=== PATIENT | female | born 1965 | race Caucasian/White ===

== ENCOUNTER 2016-10-05 18:23 | Emergency (ER) | payer OTHER ==
--- NOTE | 2016-10-05 18:34 | EDPHY ---
H & P Stated Complaint: Dizziness and shaking x 1 hour HPI/ROS: HPI CHIEF COMPLAINT: Lightheadedness, feeling light going to pass out, anxiety HISTORY OF PRESENT ILLNESS: This patient very pleasant 51-year-old female significant past medical history for IBS, anxiety, thyroid disease, was having an MRI outpatient of her left knee today approximately 15 minute tender MRI she started feel lightheaded, anxious, tingling in her in her hands and arms. She states that she did have an MRI stopped. The tingling in her arms and has continued, she feels anxious and shortness of breath. Lightheaded. Does have should pass out. She did take a (1/3) of Xanax and decided to drive here to the emergency room. Past Medical History: Anxiety, IBS, thyroid disease Past Surgical History: recent surgery Social History: Denies daily use of drugs alcohol tobacco products Family History: Noncontributory ROS REVIEW OF SYSTEMS: A comprehensive 10 point review of systems is otherwise negative aside from elements mentioned in the history of present illness. Exam Constitutional anxious, triage nursing summary reviewed, vital signs reviewed , awake/alert. Eyes normal conjunctivae and sclera, EOMI, PERRLA. HENT normal inspection, atraumatic, moist mucus membranes, no epistaxis, neck supple/ no meningismus, no raccoon eyes. Respiratory clear to auscultation bilaterally, normal breath sounds, no respiratory distress, no wheezing. Cardiovascular rate normal, regular rhythm, no murmur, no edema, distal pulses normal. Gastrointestinal soft, non-tender, no rebound, no guarding, normal bowel sounds, no distension, no pulsatile mass. Genitourinary no CVA tenderness. Musculoskeletal no midline vertebral tenderness, full range of motion, no calf swelling, no tenderness of extremities, no meningismus, good pulses, neurovascularly intact. Skin pink, warm, & dry, no rash, skin atraumatic. Neurologic awake, alert and oriented x 3, AAOx3, moves all 4 extremities equally, motor intact, sensory intact, CN II-XII intact, normal cerebellar, normal vision, normal speech. Psychiatric normal mood/affect. Heme/Lymph/Immune no lymphadenopathy. Differential Diagnosis: Includes but is not limited to in a particular order acute anxiety, dehydration, electrolyte disturbance, cardiac arrhythmia, acute coronary syndrome which I doubt. Medical Decision Making: plan for patient blood work, IV establishment, EKG, troponin. IV Ativan for anxiety, IV fluids. Close observation re-evaluation. Re-evaluation: EKG time of EKG 1849, sinus rhythm rate of 96, no acute ischemic changes specifically no ST elevation, ST depression T-wave abnormalities. Unremarkable EKG. 2102: Re-examination at this time patient is resting comfortably she feels much better after IV Ativan. Fluids. 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 No hypertension. No fever. Electrolytes and blood work are appropriate. EKG nonischemic, chest x-ray reviewed. Feels much better after IV Ativan. Most likely presentation of anxiety after MRI. Recommend she takes her Xanax tonight relaxes, rest, stay well-hydrated strict return precautions have been given to the patient understands return emergency room if she develops any chest pain shortness of breath nausea vomiting generalized weakness. She is agreeable with this plan. Source: Patient - Personal History LMP (Females 10-55): Hysterectomy Current Tetanus Diphtheria and Acellular Pertussis (TDAP): Yes Tetanus Vaccine Date: WITHIN 10 YRS - Medical/Surgical History Other PMH: IBS, HYPOTHYROIDISM, HYST, HERNIA REPAIR, TUMMY TUCK - Social History Smoking Status: Never smoked Constitutional: Initial Vital Signs Temperature (C) 37.1 C 10/05/16 18:25 Heart Rate 93 10/05/16 18:25 Respiratory Rate 14 10/05/16 18:25 Blood Pressure 140/86 H 10/05/16 18:25 O2 Sat (%) 100 10/05/16 18:25 O2 Delivery Mode Room Air Allergies/Adverse Reactions: meperidine HCl [From Demerol] Allergy (Verified 08/29/15 20:50) Hives Home Medications: Medication Instructions Recorded Levothyroxine Sodium [Synthroid] 75 mcg PO 05/11/12 Amitiza 08/29/15 Docusate Sodium [Colace 100 MG (*)] 100 mg PO BID #20 cap 08/29/15 Nitrofurantoin Macrobid [Macrobid 100 mg PO BID #10 cap 08/29/15 100 mg (RX)] Medical Decision Making - Diagnostics Imaging: Imaging Impressions Chest X-Ray 10/05/16 18:42 Impression: Normal except for minimal airways disease. - Data Points Laboratory Results: Laboratory Results 10/05/16 18:45 10/05/16 18:45 10/05/16 10/05/16 10/05/16 18:45 18:45 18:45 WBC 10.21 10^3/uL H 10^3/uL (3.80-9.50) RBC 4.55 10^6/uL 10^6/uL (4.18-5.33) Hgb 13.7 g/dL g/dL (12.6-16.3) Hct 40.7 % % (38.0-47.0) MCV 89.5 fL fL (81.5-99.8) MCH 30.1 pg pg (27.9-34.1) MCHC 33.7 g/dL g/dL (32.4-36.7) RDW 12.4 % % (11.5-15.2) Plt Count 298 10^3/uL 10^3/uL (150-400) MPV 10.9 fL fL (8.7-11.7) Neut % (Auto) 58.1 % % (39.3-74.2) Lymph % (Auto) 28.0 % % (15.0-45.0) [place] % (Auto) 10.2 % % (4.5-13.0) Eos % (Auto) 2.2 % % (0.6-7.6) Baso % (Auto) 0.7 % % (0.3-1.7) Nucleat RBC Rel Count 0.0 % % (0.0-0.2) Absolute Neuts (auto) 5.94 10^3/uL 10^3/uL (1.70-6.50) Absolute Lymphs (auto) 2.86 10^3/uL 10^3/uL (1.00-3.00) Absolute Monos (auto) 1.04 10^3/uL H 10^3/uL (0.30-0.80) Absolute Eos (auto) 0.22 10^3/uL 10^3/uL (0.03-0.40) Absolute Basos (auto) 0.07 10^3/uL 10^3/uL (0.02-0.10) Absolute Nucleated RBC 0.00 10^3/uL 10^3/uL (0-0.01) Immature Gran % 0.8 % % (0.0-1.1) Immature Gran # 0.08 10^3/uL 10^3/uL (0.00-0.10) PT 12.5 SEC SEC (12.0-15.0) INR 0.94 (0.83-1.16) APTT 25.8 SEC SEC (23.0-38.0) D-Dimer 0.39 ug/mLFEU ug/mLFEU (0.00-0.50) Sodium 139 mEq/L mEq/L (134-144) Potassium 3.4 mEq/L L mEq/L (3.5-5.2) Chloride 103 mEq/L mEq/L (97-110) Carbon Dioxide 24 mEq/l mEq/l (22-31) Anion Gap 12 mEq/L mEq/L (8-16) BUN 14 mg/dL mg/dL (7-23) Creatinine 0.7 mg/dL mg/dL (0.6-1.0) Estimated GFR > 60 Glucose 135 mg/dL H mg/dL (70-100) Calcium 9.8 mg/dL mg/dL (8.5-10.4) Magnesium 1.8 mg/dL mg/dL (1.6-2.3) Total Bilirubin 0.6 mg/dL mg/dL (0.1-1.4) Conjugated Bilirubin 0.3 mg/dL mg/dL (0.0-0.5) Unconjugated Bilirubin 0.3 mg/dL mg/dL (0.0-1.1) AST 72 IU/L H IU/L (14-46) ALT 119 IU/L H IU/L (9-52) Alkaline Phosphatase 77 IU/L IU/L (38-126) Creatine Kinase 38 IU/L IU/L (0-156) CK-MB (CK-2) Fraction 0.29 ng/mL ng/mL (0-3.19) Troponin I < 0.012 ng/mL ng/mL (0-0.034) NT-Pro-B Natriuret Pep < 11 pg/mL pg/mL (0-125) Total Protein 7.5 g/dL g/dL (6.3-8.2) Albumin 4.5 g/dL g/dL (3.5-5.0) Lipase 94.0 IU/L IU/L (23-300) TSH 0.524 uIU/mL uIU/mL (0.465-4.680) Medications Given: Discontinued Medications Sodium Chloride (Ns) 1,000 mls @ 0 mls/hr IV ONCE ONE PRN Reason: Wide Open Stop: 10/05/16 18:42 Last Admin: 10/05/16 18:55 Dose: 1,000 mls Lorazepam (Ativan Injection) 1 mg IVP EDNOW ONE Stop: 10/05/16 18:42 Last Admin: 10/05/16 18:55 Dose: 1 mg Departure - Departure Disposition: Home, Routine, Self-Care Clinical Impression: Lightheaded Condition: Good Instructions: Lightheadedness (ED), Near Syncope (ED) Additional Instructions: 1. Drink lots of fluids stay well-hydrated 2. return emergency room if you have any worsening symptoms includes chest pain , shortness of breath, passing out vomiting or fever. Referrals: [facility] [Other] - As per Instructions
[2016-10-05] MEDS ORDERED: LORazepam 2 MG/ML INJ IVP ONE (18:41)
[2016-10-05] MEDS ORDERED: NS 1,000 ML IV ONE (18:41)
[2016-10-05] MEDS ORDERED: ONDANSETRON 4 MG/2 ML VIAL ONE (18:41)
[2016-10-05] MEDS ORDERED: LORazepam 2 MG/ML INJ ONE (18:43)
--- NOTE | 2016-10-05 18:52 | CPEKG ---
Heart Rate: 96 RR Interval: 625 P-R Interval: 148 QRSD Interval: 102 QT Interval: 356 QTC Interval: 450 P [place]: 67 QRS [place]: 6 T Wave [place]: 55 EKG Severity - NORMAL ECG - EKG Impression: SINUS RHYTHM Electronically Signed By: Jose Juan Schwarz 05-Oct-2016 21:22:39
[2016-10-05 18:55] LABS: % IMMATURE GRANULYOCYTES 0.8 % (0.0-1.1); ABSOLUTE IMMATURE GRANULOCYTES 0.08 10^3/uL (0.00-0.10); ADD DIFF? NO; ADD MORPH? NO; ADD SCAN? NO; ATYPICAL LYMPHOCYTE FLAG 10 (0-99); FRAGMENT RBC FLAG 0 (0-99); HEMATOCRIT 40.7 % (38.0-47.0); HEMOGLOBIN 13.7 g/dL (12.6-16.3); LEFT SHIFT FLG 0 (0-99); LIPEMIA HEMOLYSIS FLAG 80 (0-99); MEAN CELL HEMOGLOBIN 30.1 pg (27.9-34.1); MEAN CELL HEMOGLOBIN CONCENTR. 33.7 g/dL (32.4-36.7); MEAN CELL VOLUME 89.5 fL (81.5-99.8); MEAN PLATELET VOLUME 10.9 fL (8.7-11.7); PLATELET CLUMPS FLAG 20 (0-99); PLATELET COUNT 298 10^3/uL (150-400); RED BLOOD CELL COUNT 4.55 10^6/uL (4.18-5.33); RED CELL DISTRIBUTION WIDTH 12.4 % (11.5-15.2)
[2016-10-05 19:03] LABS: INR 0.94 (0.83-1.16); PROTIME(PATIENT) 12.5 SEC (12.0-15.0)
[2016-10-05 19:04] LABS: APTT 25.8 SEC (23.0-38.0)
[2016-10-05 19:05] LABS: ALANINE AMINOTRANSFERASE 119 IU/L (9-52); ALBUMIN 4.5 g/dL (3.5-5.0); ALKALINE PHOSPHATASE 77 IU/L (38-126); ANION GAP 12 mEq/L (8-16); ASPARTATE AMINOTRANSFERASE 72 IU/L (14-46); BILIRUBIN,TOTAL 0.6 mg/dL (0.1-1.4); BILIRUBIN-CONJUGATED 0.3 mg/dL (0.0-0.5); BILIRUBIN-UNCONJUGATED 0.3 mg/dL (0.0-1.1); CALCIUM 9.8 mg/dL (8.5-10.4); CARBON DIOXIDE 24 mEq/l (22-31); CHLORIDE 103 mEq/L (97-110); CREATININE 0.7 mg/dL (0.6-1.0); GLOMERULAR FILTRATION RATE > 60; GLUCOSE 135 mg/dL (70-100); MAGNESIUM 1.8 mg/dL (1.6-2.3); POTASSIUM 3.4 mEq/L (3.5-5.2); SODIUM 139 mEq/L (134-144); TOTAL PROTEIN 7.5 g/dL (6.3-8.2)
[2016-10-05 19:17] LABS: CREATINE KINASE-MB FRACTION 0.29 ng/mL (0-3.19); TROPONIN I < 0.012 ng/mL (0-0.034)
[2016-10-05 21:11] VITALS: BP 128/77; PULSE 92; RESP 20; TEMP 97.7; O2SAT 96
== END 2016-10-05 21:18 | disposition home or self-care (01) ==
DX: R42 Dizziness and giddiness (principal)
CPT/HCPCS: 96374; J2060; J2405

== ENCOUNTER 2018-06-19 06:47 | Observation (INO) | payer OTHER ==
[2018-06-19] MEDS ORDERED: LR 1,000 ML IV ONE (07:03)
[2018-06-19] MEDS ORDERED: MIDAZOLAM 2 MG/2 ML VIAL IVP ONE (08:04)
--- NOTE | 2018-06-19 08:04 | PDANEPAE ---
ANE Past Medical History - Cardiovascular History Hx Hypertension: No Hx Arrhythmias: No Hx Chest Pain: No Hx Coronary Artery / Peripheral Vascular Disease: No Hx CHF / Valvular Disease: No Hx Palpitations: Yes Cardiovascular History Comment: hx of palpitations worked up by [facility] in 2015- cleared - Pulmonary History Hx COPD: No Hx Asthma/Reactive Airway Disease: No Hx Recent Upper Respiratory Infection: No Hx Oxygen in Use at Home: No Hx Sleep Apnea: No Sleep Apnea Screening Result - Last Documented: Negative - Neurologic History Hx Cerebrovascular Accident: No Hx Seizures: No Hx Dementia: No - Endocrine History Hx Diabetes: No Endocrine History Comment: current nodule on right thyroid lobe, bx proved that they cannot r/o malignancy - Renal History Hx Renal Disorders: No - Liver History Hx Hepatic Disorders: No - Neurological & Psychiatric Hx Hx Neurological and Psychiatric Disorders: Yes Neurological / Psychiatric History Comment: mild anxiety - Cancer History Hx Cancer: No - Congenital Disorder History Hx Congenital Disorders: No - GI History Hx Gastrointestinal Disorders: Yes Gastrointestinal History Comment: hx of hemorrhoidectomy this past year. IBS. reflux - Other Health History Other Health History: none - Chronic Pain History Chronic Pain: No - Surgical History Prior Surgeries: back surgery 2018. abdominal surgery 2018. hemorrhoidectomy 2018. breast surgery. hysterectomy. . previous back surgery. previous abd surgery ANE Review of Systems Review of Systems: - Exercise capacity METS (RN): 4 METS ANE Patient History - Allergies Allergies/Adverse Reactions: adhesive Allergy (Verified 06/19/18 07:16) Rash meperidine HCl [From Demerol] Allergy (Verified 06/13/18 11:11) Hives - Home Medications Home Medications: Cholecalciferol (Vitamin D3) [Vitamin D3] 2,000 unit PO DAILY 06/06/18 [Last Taken 06/13/18] Lubiprostone [Amitiza 24 mcg (*)] 24 mcg PO DAILY 06/06/18 [Last Taken 06/19/18 06:40] Omeprazole 20 mg PO DAILY 06/06/18 [Last Taken 06/19/18 06:40] Propranolol HCl [Inderal 20mg (*)] 20 mg PO DAILY 06/06/18 [Last Taken 06/18/18] Sertraline HCl [Zoloft 50mg (*)] 50 mg PO DAILY 06/06/18 [Last Taken 06/19/18 06 :40] Synthroid 75 mcg (*) 75 mcg PO DAILY06 06/06/18 [Last Taken 06/19/18 06:40] Topiramate 50 mg PO HS 06/06/18 [Last Taken 06/18/18] Vitamin B Complex [Vitamin B Complex (OTC)] 1 each PO DAILY@1200 06/06/18 [Last Taken 06/13/18] clonazePAM [Clonazepam] 0.5 mg PO DAILY PRN 06/06/18 [Last Taken 06/18/18] - NPO status NPO Since - Liquids (Date): 06/19/18 NPO Since - Liquids (Time): 05:40 NPO Since - Solids (Date): 06/18/18 NPO Since - Solids (Time): 23:00 - Smoking Hx Smoking Status: Never smoked - Family Anes Hx Family Hx Anesthesia Complications: none ANE Labs/Vital Signs - Vital Signs Blood Pressure: 110/92 Heart Rate: 85 Respiratory Rate: 18 O2 Sat (%): 96 Height: 165.1 cm Weight: 70.307 kg ANE Physical Exam - Airway Neck exam: FROM Mallampati Score: Class 1 Mouth exam: normal dental/mouth exam - Pulmonary Pulmonary: clear to auscultation - Cardiovascular Cardiovascular: regular rate and rhythym - ASA Status ASA Status: II ANE Anesthesia Plan Anesthesia Plan: general endotracheal anesthesia
[2018-06-19] MEDS ORDERED: LIDO/EPI 1% **Not for Epidural 20 ML MDV ONE (08:11)
[2018-06-19] MEDS ORDERED: BACITRACIN ZINC 14.2 GM OINTTUBE TP ONE (08:11)
[2018-06-19] MEDS ORDERED: PROPOFOL 200 MG/20 ML VIAL ONE ×2 (08:43→09:53)
[2018-06-19] MEDS ORDERED: fentaNYL 100 MCG/2 ML INJ ONE ×4 (08:43→11:08)
[2018-06-19] MEDS ORDERED: DEXAMETHASONE 4 MG/ML VIAL IVP ONE (08:48)
[2018-06-19] MEDS ORDERED: ceFAZolin 2 GM/DEXTROSE 100 ML IV ONE (08:48)
--- NOTE | 2018-06-19 08:48 | PDHPUP ---
History & Physical Update H&P update statement: This history and physical update is based on an assessment of the patient which was completed after admission or registration (within 24 hours), but prior to the surgery/procedure. H&P update: H&P reviewed & patient examined, no change in patient's condition since H&P completed
[2018-06-19] MEDS ORDERED: CEFAZOLIN 2 GM/DEXTROSE/100 ML BAG IV ONE (08:51)
[2018-06-19] MEDS ORDERED: ONDANSETRON 4 MG/2 ML VIAL IVP PRN ×2 (08:54→10:01)
[2018-06-19] MEDS ORDERED: ALBUTEROL 3 ML DEYVIAL IH PRN (10:01)
[2018-06-19] MEDS ORDERED: ACETAMINOPHEN 500 MG TAB PO PRN (10:01)
[2018-06-19] MEDS ORDERED: oxyCODONE IR 5 MG TAB PO PRN (10:01)
[2018-06-19] MEDS ORDERED: LR 500 ML IV PRN (10:01)
[2018-06-19] MEDS ORDERED: PHENYLEPHRINE HCL 100 MCG/ML SYR IVP PRN (10:01)
[2018-06-19] MEDS ORDERED: NALOXONE HCL 0.4 MG/ML INJ IVP PRN (10:01)
[2018-06-19] MEDS ORDERED: HYDROCODONE/APAP 5/325 TAB PO PRN (10:01)
[2018-06-19] MEDS ORDERED: PROMETHAZINE HCL 25 MG/ML INJ IVP PRN (10:01)
[2018-06-19] MEDS ORDERED: LABETALOL HCL 5 MG/ML 20 ML MDV IVP PRN (10:01)
[2018-06-19] MEDS ORDERED: METOCLOPRAMIDE 10 MG/2 ML VIAL IVP PRN (10:01)
--- NOTE | 2018-06-19 10:34 | POSTOPPROG ---
Post Op Note Date of Operation: 06/19/18 Surgeon: Coco Davis Laborer/Grade Check: Dr Tian Ortiz Anesthesia: GET(General Endotracheal) Pre-op Diagnosis: right thyroid mass Post-op Diagnosis: same Procedure: right hemithyroidectomy Findings: none Inf/Abcess present in the surg proc area at time of surgery?: No Depth: Deep Incisional (Fascial) EBL: Minimal Total fluids administered: 900 Complications: none Drains: Hemovac (right thyroid lobe)
[2018-06-19] MEDS ORDERED: HYDROmorphONE/DILAUDID 2 MG/ML INJ ONE (10:41)
[2018-06-19] MEDS: fentaNYL 100 MCG/2 ML INJ IVP PRN ×3 (10:42→11:09)
[2018-06-19] MEDS: HYDROmorphONE/DILAUDID 2 MG/ML INJ IVP PRN ×2 (10:51→11:01)
[2018-06-19] MEDS ORDERED: DIAZEPAM 5 MG/ML 1 ML SYR ONE (11:13)
[2018-06-19] MEDS: DIAZEPAM 5 MG/ML 1 ML SYR IVP PRN ×2 (11:15→11:37)
[2018-06-19] MEDS ORDERED: oxyCODONE IR 5 MG TAB ONE (11:35)
--- NOTE | 2018-06-19 11:47 | POSTANESTH ---
Post Anesthetic Evaluation Cardiovascular Status: Normal, Stable Respiratory Status: Normal, Stable Level of Consciousness/Mental Status: Can Participate in Eval Pain Control: Adequate, Prn Tx Ordered Nausea/Vomiting Control: Adequate, Prn Tx Ordered Complications Possibly Related to Anesthesia: None Noted
[2018-06-19] MEDS: D5W 1/2 NS W/ 20 KCl/L 1,000 ML IV SCH (12:21)
[2018-06-19] MEDS: OXYCODONE/APAP 5/325 TAB PO PRN ×2 (14:14→18:17)
[2018-06-19] MEDS: DEXAMETHASONE 4 MG/ML VIAL IVP SCH ×2 (14:15→21:55)
--- NOTE | 2018-06-19 15:05 | ASMTCMCOM ---
CM Note CM Note Notes: Pt admitted for scheduled thyroid surgery, anticipate she will dc home w/support of her when medically stable. CM available for any changes. DC Plan: Independent Date Signed: 06/19/2018 03:04 PM Electronically Signed By:Melvina Davis RN
--- NOTE | 2018-06-19 15:12 | GOP ---
DATE OF OPERATION: 06/19/2018 SURGEON: Albert Davis MD MARINE STEAMFITTER: Tian Ortiz M.D. ANESTHESIA: General endotracheal. PREOPERATIVE DIAGNOSIS: Right thyroid mass. Previous biopsy positive for atypia of unknown significance. POSTOPERATIVE DIAGNOSIS: PROCEDURE PLANNED: Right hemithyroidectomy with possible total thyroidectomy and paratracheal node dissection. PROCEDURE PERFORMED: Right hemithyroidectomy. FLUID REPLACEMENT: 900 mL. COMPLICATIONS: None. FINDINGS: Grossly normal right thyroid lobe. 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 ESTIMATED BLOOD LOSS: 30 mL. DESCRIPTION OF PROCEDURE: Patient was placed on the operating table in supine position. After induction of adequate general endotracheal anesthesia, sterile draping was performed. Infiltration of the area surrounding the proposed incision site in a naturally occurring skin crease slightly superior to the thyroid cartilage was performed utilizing 1% lidocaine with 1:100,000 parts of epinephrine. This agent was given in an adequate time to act as sterile prep and drape was completed. The incision was then carried down through the subcutaneous tissues until the platysma muscle was encountered. Platysma muscle was divided and then flaps were elevated slightly superiorly and inferiorly to the level of sternal notch in a subplatysmal plane. The vertical midline of the neck was identified. At this point, the soft tissues of vertical midline were bluntly and sharply divided until the right thyroid lobe was encountered. Circumferential dissection of the strap musculature off the small right thyroid lobe was performed. Initially, attention was directed to the superior vascular pedicle. This was dissected free and was then clamped inferior to the superior laryngeal nerve. It was then sharply divided. The inferior portion was tied with 2-0 silk tie. The superior portion was tied with a 2-0 silk suture ligature. Further dissection then proceeded along the posterior aspect of the thyroid gland. The cricoarytenoid joint was reached. It was noted that the thyroid tissue was well anterior to the cricoarytenoid joint and disturbance of the recurrent laryngeal nerve was not performed. A normal parathyroid was encountered and left in situ just posterior to the cricoarytenoid joint. The inferior vascular pedicle was encountered. This was then clamped and cut with 2-0 silk ties. Dissection of the thyroid tissue off the underlying trachea was performed until dissection had been carried to just left of midline. At this point, the thyroid isthmus was clamped. The isthmus was then sharply divided and the right thyroid lobe was handed off and sent for frozen section. A running [id number] silk suture was used to ligate the isthmus. Once this had been completed, the wound was reexamined. No further significant bleeding was noted. A 10-[place] suction drain was placed deeply into the wound and sutured into place in the skin with a 2-0 silk suture ligature. The strap musculature was then reapproximated in the vertical midline of the neck utilizing 3-0 Vicryl sutures. A deep layer closure of the neck wound was performed utilizing interrupted 5-0 Monocryl sutures. The skin was then closed with a running locked 5-0 Prolene suture. The neck was then cleansed, bacitracin was applied to the wound. A sterile pressure dressing was applied. The patient was then awakened and transferred to postanesthesia recovery in stable condition. /[id number]/MODL MTDD
--- NOTE | 2018-06-19 17:09 | SOAPPROG ---
SOAP Progress Note Assessment/Plan: Assessment: Pt s/p hemithyroidectomy. Doing well. Pain controlled. Plan for d/c tomorrow. Pt was evaluated by Dr. Davis. Plan: 06/19/18 17:08 Objective: Vital Signs Temp Pulse Resp BP Pulse Ox 36.1 C 80 16 124/76 H 91 L 06/19/18 15:26 06/19/18 15:26 06/19/18 15:26 06/19/18 15:26 06/19/18 15:26 06/18/18 06/19/18 06/20/18 05:59 05:59 05:59 Intake Total 1200 Output Total 10 Balance 1190 ICD10 Worksheet Patient Problems: Problems Problem Status Onset Thyroid mass Acute - ICD10 Problem Qualifiers (1) Thyroid mass
[2018-06-20] MEDS: D5W 1/2 NS W/ 20 KCl/L 1,000 ML IV SCH (01:56)
[2018-06-20] MEDS: OXYCODONE/APAP 5/325 TAB PO PRN (02:05)
[2018-06-20] MEDS: DEXAMETHASONE 4 MG/ML VIAL IVP SCH (05:43)
[2018-06-20 07:17] VITALS: BP 106/70
--- NOTE | 2018-06-20 09:33 | PDDCSUM ---
Discharge Summary Discharge Summary: Pt POD #1 s/p hemithyroidectomy by Dr. Davis. She is doing well. Pain controlled. Voice strong. NERY drain removed. Dressing replaced. incision c/d/i Okay for d/c follow up in clinic next week
== END 2018-06-20 11:20 | disposition home or self-care (01) ==
LOC: F3E 06:47
PROVIDERS: ADMIT Otolaryngology; ATTEND Otolaryngology
PROC: 0GTH0ZZ Resection of Right Thyroid Gland Lobe, Open Approach (ICD-10-PCS; principal; 2018-06-19 08:30)
DX: D34 Benign neoplasm of thyroid gland (principal); E06.3 Autoimmune thyroiditis; K21.9 Gastro-esophageal reflux disease without esophagitis
CPT/HCPCS: 60220; G0378; J0690; J1100; J1170; J2250; J2405; J2704; J3010; J3360